=== PATIENT | male | born 1970 | race Caucasian/White ===

== ENCOUNTER → 2023-11-14 09:52 | Outpatient (BNVA) | payer BC, SELFPAY | PROVIDERS: Visit Provider Specialist | DX: G56.03 Carpal tunnel syndrome, bilateral upper limbs (principal) | CPT/HCPCS: 73130 ==

== ENCOUNTER 2023-11-14 11:58 | Outpatient (CLI) | payer BC, SELFPAY | END 2023-11-14 11:59 | disposition home or self-care (01) | LOC: SPT 11:58 | PROVIDERS: Visit Provider Specialist | DX: Z46.89 Encounter for fitting and adjustment of other specified devices (principal); G56.01 Carpal tunnel syndrome, right upper limb | CPT/HCPCS: L3908 ==

== ENCOUNTER → 2023-12-24 17:07 | Outpatient (BNVA) | payer BC, SELFPAY | PROVIDERS: Visit Provider Specialist | DX: Z01.818 Encounter for other preprocedural examination (principal) | CPT/HCPCS: 80053; 81001; 85025 ==

== ENCOUNTER 2024-01-15 12:49 | Day surgery (SDC) | payer BC, SELFPAY ==
[2024-01-15] VITALS (15 sets, daily range): BP systolic 177–243; BP diastolic 108–139; PULSE 60–85; RESP 18; TEMP 36.1–36.7; O2SAT 92–99; BMI 34.9
--- NOTE | 2024-01-15 13:55 | W.PM.OPSUD ---
Surgery/Procedure H&P Update DATE OF PROCEDURE: January 15, 2024 DATE H&P PERFORMED: 01/04/24 H&P UPDATE INFORMATION: I have reviewed H&P completed within last 30 days, I have examined patient prior to procedure, No changes to prior documentation and H&P is in [facility] EMR on date indicated PLANNED PROCEDURE: Operation Date: 01/15/24 15:25 Proposed Procedures p Carpal Tunnel Release(Right) - Marta Devi MD Related Problem List Diagnoses (1) Carpal tunnel syndrome on right:
[2024-01-15] MEDS: sodium chloride 0.9% 1,000 ML 30 ML IV (14:20)
[2024-01-15] MEDS: acetaminophen 1,000 MG/100 ML PIGGYBACK 400 MG IV (14:20)
[2024-01-15] MEDS: CELEcoxib 200 mg Capsule 400 MG PO (14:20)
[2024-01-15] MEDS: gabapentin 300 mg Capsule PO (14:20)
[2024-01-15] MEDS: ceFAZolin 2,000 mg SDV 2000 MG IVP (14:28)
--- NOTE | 2024-01-15 14:48 | ANES.PREANE2 ---
Pre-Anesthetic Assessment Height/Weight: Height 6 ft 1 in Weight 265 lb Temp Pulse Resp BP Pulse Ox O2 Del Method 98.1 F 60 18 198/118 98 Room Air 01/15/24 13:10 01/15/24 13:10 01/15/24 13:10 01/15/24 13:10 01/15/24 13:10 01/15/24 13:10 Preop Diagnosis: Carpal tunnel syndrome Operation Date: 01/15/24 15:25 Proposed Procedures p Carpal Tunnel Release(Right) - Marta Devi MD Was Beta Swathi taken within 24 hours: Yes Was Clonidine taken within 24 hours: N/A Last intake: Intake Last Liquid Date 01/14/24 Last Liquid Time 18:00 Last Solid Date 01/14/24 Last Solid Time 18:00 Social No alcohol and No tobacco Exam alert, oriented x 3, clear to auscultation bilaterally and regular rate & rhythm Airway Submandibular: within normal limits Cervical ROM: within normal limits Mallampati: Class III Dentition: full Anesthetic Plan ASA status: 3 Anesthesia: General Other: No prior issues with anesthesia NPO since yesterday History of hypertension, on 5 antihypertensive agents. All of these were held other than BB. Preop BP 198/118. Patient was given 20 of labetalol which resulted in BP coming down. Patient denies any chest pain/shortness of breath. Plan to proceed GERD on omeprazole METs greater than 4 Hyponatremia noted, repeat sodium 128 Plan for general anesthesia with LMA Medications/Allergies Home Medications Medication Instructions Recorded Confirmed Last Taken Type Cock Up Splint #1 ea 11/14/23 01/04/24 Unknown Rx atenolol 100 mg tablet 100 mg PO DAILY 11/14/23 01/15/24 01/15/24 08:30 History bumetanide 1 mg tablet 1 mg PO DAILY 11/14/23 01/14/24 01/14/24 History cholecalciferol (vitamin D3) 125 125 mcg PO DAILY 11/14/23 01/14/24 01/14/24 History mcg (5,000 unit) tablet (Vitamin D3) hydrochlorothiazide 25 mg tablet 25 mg PO DAILY 11/14/23 01/14/24 01/08/24 History losartan 100 mg tablet 100 mg PO DAILY 11/14/23 01/14/24 01/14/24 History omeprazole 20 mg capsule,delayed 20 mg PO DAILY 11/14/23 01/15/24 01/15/24 08:30 History release tadalafil 5 mg tablet 5 mg PO DAILY 11/14/23 01/14/24 Unknown History terazosin 5 mg capsule 5 mg PO DAILY 11/14/23 01/14/24 01/14/24 History cetirizine 5 mg tablet (Allergy 5 mg PO DAILY PRN Allergy Symptoms 01/04/24 01/14/24 01/14/24 History Relief (cetirizine)) Allergies Allergy/AdvReac Type Severity Reaction Status Date / Time No Known Allergies Allergy Verified 01/15/24 13:02 Current Medications Generic Name Dose Route Start Last Admin Trade Name Freq PRN Reason Stop Dose Admin Sodium Chloride 1,000 mls @ 30 mls/hr 01/15/24 13:15 01/15/24 14:20 Sodium Chloride 0.9% IV 01/16/24 13:14 30 mls/hr .Q24H JASON Administration PFSH Anesthesia Social History Smoking and tobacco/nicotine status: never used tobacco/nicotine Data Anesthesia Cardiac Studies: No Data to Display
[2024-01-15] MEDS: BUPivacaine 0.5% INJ 30 mL XX (15:04)
--- NOTE | 2024-01-15 15:13 | PC.NURSE ---
Dr. Dale consulted about pt's blood pressure upon admission. Dr. Dale gave pt labatolol 10 mg IVP before pt taken to surgery. Pt talking, color pink, respirations regular. pt stated took only 1 of his multiple blood pressure medications this morning and none of his diuretics. He stated his BP is w/i normal range at home when he takes it 3 times a week.
--- NOTE | 2024-01-15 15:30 | PM.OP ---
Operative Report Date of procedure: January 15, 2024 Pre-op diagnosis: Right carpal tunnel syndrome Post-op diagnosis: Right carpal tunnel syndrome Post-op findings: Severe compression of the right median nerve through the carpal canal. Procedure done: Right carpal tunnel release. Implants: None Specimens removed/disposition: None Pathology: None Surgeon: Marta Devi MD Foam Machine Operator: None Anesthesia: General (Per LMA, ASA 3) Estimated blood loss (mL): 10 Tourniquet time (min): 11 (At 250 mmHg) IV fluids (mL): 800 Urine output (mL): 0 (No Lewis) Complications: None Findings: Severe compression across the carpal canal. Condition: stable Disposition: PACU (Then return to same-day surgery for discharge to home) Brief History: This 53-year-old gentleman initially presented to the office with complaints of pain consistent with carpal tunnel syndrome. He had nerve conduction studies obtained in [facility] which demonstrated severe right carpal tunnel syndrome and mild left carpal tunnel syndrome. There was no evidence of radiculopathy. There was no evidence of right or left ulnar neuropathy. The patient wished to proceed with carpal tunnel release as the hand was very symptomatic and interfering with his activities of daily living. Risks and complications were discussed with the patient and consents were signed. Procedure: The patient was brought to the operating theater. The patient had a general anesthesia per LMA, ASA 3. The tourniquet was elevated to 250 mmHg for a total tourniquet time of 11 minutes. The patient was also given Ancef 2 g preoperatively. The arm was then prepped and draped with DuraPrep in usual fashion with the arm draped free. A surgical pause was performed. At the time, the surgical pause, we confirmed the site and side of surgery. We also confirmed the patient's identity, appropriate and timely administration of preoperative antibiotics and preoperative surgical markings. An incision was then made along the thenar crease. The incision crossed the wrist joint in a curvilinear fashion. Dissection continued through skin and soft tissues using a scalpel. The palmaris longus was identified along with the transverse carpal ligament. Each of these was released carefully to avoid injury to the median nerve. We were able to dissect gently into the carpal canal which was noted to be quite tight with significant compression across the median nerve. The nerve was visualized and was an hourglass shape. The canal was subsequently palpated to assure there was no bony encroachment upon the canal. There was a quite thickened fibrous tissue within the canal, and this was opened longitudinally as well. The canal was then palpated distally and proximally to assure that my small finger was passed easily without impingement. Finding this to be so, attention was directed to closure. The wound was irrigated with ropivacaine plain. It was then closed with 3-0 nylon in an interrupted mattress fashion. Sterile dressing was then placed consisting of Dermabond, OpSite, fluffed fluffs, sterile soft roll, and an [place] wrap. The tourniquet was released after 11 minutes. There were no complications. There were no specimens. The procedure was well tolerated. Plan is the patient will be discharged home. Related Problem List Diagnoses (1) Carpal tunnel syndrome on right:
--- NOTE | 2024-01-15 16:48 | ANE.PACU2 ---
Inpatient post-anesthesia follow up: Airway intact: Yes Vital signs: Temperature 97 F Pulse Rate 68 Respiratory Rate 18 Blood Pressure 232/132 Pulse Oximetry 96 Oxygen Delivery Me thod Room Air Oxygen Flow Rate Fraction of Inspir ed Oxygen Hydration adequate: Yes Nausea and vomiting: No Pain level: 1 Mental status: Baseline
--- NOTE | 2024-01-15 16:48 | PC.NURSE ---
Pt. stated he wanted to go home and take his blood pressure medication. he stated that his bp was consistantly as it was today for a year while he and his dr tried different variations of medications, and that he knows his body and has no symptoms today. Dr Dale assessed pt before discharge.
== END 2024-01-15 16:48 | disposition home or self-care (01) ==
PROVIDERS: PCP Physician Assistant; Visit Provider Specialist
PROC: (CPT 64721; principal; 2024-01-15 15:15)
DX: G56.01 Carpal tunnel syndrome, right upper limb (principal); I10 Essential (primary) hypertension; K21.9 Gastro-esophageal reflux disease without esophagitis; E87.1 Hypo-osmolality and hyponatremia
CPT/HCPCS: 64721; J0131; J0461; J0690; J1100; J2250; J2405; J2704; J3010; J3490; J7030